=== PATIENT | male | born 1970 | race Caucasian/White ===

== ENCOUNTER 2024-10-24 18:19 | Outpatient (REF) | payer OTHER, SELFPAY ==
--- NOTE | ~2024-10-24 | MR_ITS ---
CLINICAL HISTORY: [facility] Forgetfulness sometimes, memory issues noted by pt's , sx going on for a c ouple years MR Brain without gadolinium Comparison: None Findings: No restricted diffusion. No intra-axial mass or hemorrhage. No midline shift. No hydrocephalus. Left posterior temporal lobe encephalomalacia /gliosis consistent with chronic infarct adjacent to the left sigmoid sinus which demonstrate abnormal flow void within the transverse sinus, sigmoid sinus, and proximal jugular vein concerning for dural venous sinus thrombosis and resultant venous infarct. Abnormal flow void is noted within the right intracranial vertebral artery. Moderate periventricular and subcortical T2/FLAIR hyperintensities most likely represent chronic microvascular ischemic changes. The orbits are normal. The sinuses and mastoid air cells are clear. No focal bone lesion. 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 No evidence of acute infarct or intracranial hemorrhage. Abnormal flow void within the right intracranial vertebral artery concerning for chronic occlusion/stenosis. CTA head and neck, and CTV is recommended for further evaluation. Moderate periventricular and subcortical T2/FLAIR hyperintensities, most likely represent chronic microvascular ischemic changes. This document has been electronically signed by: Chencho Watson MD on 10/24/2024 19:29:37
--- OUTSIDE RECORDS SUMMARY | 2024-10-24 18:59 | XMS_ITS | Clinical Summary ---
Author Organization [facility] [address] [place] [address] [place] [phone] Phone Care Team Providers Care Organizational Development Specialist Name Role Phone Roni Christianson MD Primary Care Provider [phone] Medications warfarin (COUMADIN) 5 mg tablet Take 1-2 Tablets by mouth See Admin Instructions for 360 days. May cause heavy bleeding. Take at same time every day. Do not change dietary habits. 12/17/19 23 Active ergocalcifero l (VITAMIN D-2) 1,250 mcg (50,000 unit) capsule Take 1 capsule (50,000 Units total) by mouth 1 (one) time per week. 8 capsule 06/14/20 24 Active enoxaparin (LOVENOX) 100 mg/mL syringe Inject 1 mL (100 mg total) under the skin every 12 (twelve) hours. Inject 100 mg as directed 2 times daily. Please dispense 10 100 mg syringes 10 each 1 10/14/19 25 Active atorvastatin (LIPITOR) 80 mg tablet Take 1 tablet (80 mg total) by mouth at bedtime. 90 tablet 10/25/19 25 Active warfarin (COUMADIN) 6 mg tablet Take 1-1.5 Tablet by mouth daily. Take as directed by clinic. 135 each 10/25/19 25 Active gabapentin (NEURONTIN) 300 mg capsule Take 1 capsule (300 mg total) by mouth 3 (three) times a day. 270 capsule 1 10/25/19 25 Active enoxaparin (LOVENOX) 300 mg/3 mL injection Inject 100 mg into the skin 2 times daily for 30 days. 10/16/19 24 025 Discontinued enoxaparin (LOVENOX) 100 mg/mL syringe Inject 100 mg as directed 2 times daily. Please dispense 10 100 mg syringes 10/16/19 24 025 Discontinued atorvastatin (LIPITOR) 80 mg tablet Take 1 tablet (80 mg total) by mouth at bedtime. 90 tablet 1 05/25/20 24 025 Discontinued(R eorder) gabapentin (NEURONTIN) 300 mg capsule Take 1 capsule (300 mg total) by mouth 3 (three) times a day. 270 capsule 1 05/25/20 24 025 Discontinued(R eorder) warfarin (COUMADIN) 6 mg tablet Take 1-1.5 Tablet by mouth daily. Take as directed by clinic. 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 Cervical spondylosis 03/22/2020 Cervical radiculitis 03/22/2020 Heterozygous factor V Leiden mutation 10/07/2017 Tear of right rotator cuff 01/05/2017 Spinal stenosis 04/06/2015 Furuncles 12/04/2014 PVD (peripheral vascular disease) 12/04/2014 HTN (hypertension) 03/23/2014 Hyperlipidemia 12/16/2012 Shoulder pain, left 11/12/2012 Elbow pain, left 11/12/2012 Migraine 11/12/2012 Smoking 11/12/2012 Obesity (BMI 30.0-34.9) 12/28/2010 Encounters Date Type Department Care Team Description 10/24/2024 2:10 PM EDT Anticoagulation - Warfarin Visit Coumadin [address] [phone] Heterozygous factor V Leiden mutation (CMS/HCC) (Primary Dx); terminal operator (current) use of anticoagulants; Personal history of DVT (deep vein thrombosis) 10/24/2024 1:00 PM EDT Office Visit Adult Medicine [address] [phone] Roni Christianson MD Pure hypercholesterolemia (Primary Dx); Encounter for long-term (current) use of medications; Vitamin D deficiency; Pain in both feet; PVD (peripheral vascular disease) (CMS/HCC); Spinal stenosis, unspecified spinal region 10/18/2024 10:00 AM EDT Anticoagulation - Warfarin Visit Coumadin [address] [phone] Heterozygous factor V Leiden mutation (CMS/HCC) (Primary Dx); custodial (current) use of anticoagulants; Personal history of DVT (deep vein thrombosis) 10/13/2024 9:30 AM EDT Anticoagulation - Warfarin Visit Coumadin [address] [phone] Heterozygous factor V Leiden mutation (CMS/HCC) (Primary Dx); custodial (current) use of anticoagulants; Personal history of DVT (deep vein thrombosis) 10/06/2024 9:40 AM EDT Anticoagulation - Warfarin Visit Coumadin [address] [phone] Heterozygous factor V Leiden mutation (CMS/HCC) (Primary Dx); custodial (current) use of anticoagulants; Personal history of DVT (deep vein thrombosis) 10/04/2024 2:45 PM EDT Ancillary Procedure [facility] 101 300 [facility] [place] [address] [place] [phone] History of revascularization procedure of lower extremity; PAD (peripheral artery disease) (CMS/HCC) 09/29/2024 9:40 AM EDT Anticoagulation - Warfarin Visit Coumadin [address] [phone] Heterozygous factor V Leiden mutation (CMS/HCC) (Primary Dx); terminal operator (current) use of anticoagulants; Personal history of DVT (deep vein thrombosis) 09/21/2024 11:20 AM EST Anticoagulation - Warfarin Visit Coumadin [address] [phone] Heterozygous factor V Leiden mutation (CMS/HCC) (Primary Dx); custodial (current) use of anticoagulants; Personal history of DVT (deep vein thrombosis) 09/14/2024 3:50 PM EST Anticoagulation - Warfarin Visit Coumadin [address] [phone] Heterozygous factor V Leiden mutation (CMS/HCC) (Primary Dx); custodial (current) use of anticoagulants; Personal history of DVT (deep vein thrombosis) 09/07/2024 11:20 AM EST [facility] [address] [phone] Heterozygous factor V Leiden mutation (CMS/HCC) (Primary Dx); custodial (current) use of anticoagulants; Personal history of DVT (deep vein thrombosis) 08/30/2024 10:20 AM EST Anticoagulation - Warfarin Visit [address] [phone] Heterozygous factor V Leiden mutation (CMS/HCC) (Primary Dx); terminal operator (current) use of anticoagulants; Personal history of DVT (deep vein thrombosis) 07/28/2024 10:20 AM EST Anticoagulation - Warfarin Visit [address] [phone] Heterozygous factor V Leiden mutation (CMS/HCC) (Primary Dx); terminal operator (current) use of anticoagulants; Personal history of DVT (deep vein thrombosis) from Last 3 Months Immunizations Name Administration Dates Next Due Influenza Quadravalent, MDCK , 0.5ml, with preservative (Flucelvax) 6mo and older 05/04/2018 Surgical History Surgery Date Site/Laterality Comments OTHER SURGICAL HISTORY PROCEDURE: DENIES PREVIOUS SURGERY OTHER SURGICAL HISTORY PROCEDURE: HISTORICAL FEM/POPLITEAL BY; COMMENT: with vein Medical History Medical History Date Comments Overweight(278.02) 12/28/2010 DX:Overweight (278.02) Shoulder pain, left 11/12/2012 DX:Shoulder pain, left Elbow pain, left 11/12/2012 DX:Elbow pain, left Migraine 11/12/2012 DX:Migraine Smoking 11/12/2012 DX:Smoking Historical Medical DX 12/16/2012 DX:Hyperli pidemia LDL goal < 130 Back pain 12/16/2012 DX:Back pain Family History Medical History Relation Name Comments Asthma Mother Relation Name Status Comments Mother Social History Tobacco Use Types Packs/Day Years Used Date Smoking Tobacco: Every Day Cigarettes Smokeless Tobacco: Never Tobacco Cessation:Ready to Q uit: Not Asked; Counseling Given: Not Answered Alcohol Use Standard Drinks/Week Comments Yes 0 (1 standard drink = 0.6 oz pur e alcohol) Sex and Gender Information Value Date Recorded Sex Assigned at Not on file Legal Sex Male 9:13 AM EST Gender Identity Not on file Sexual Orientation Not on file Obstetrics History Last Filed Vital Signs Vital Sign Reading Time Taken Comments Blood Pressure 130/80 10/24/2024 1:10 PM EDT Pulse 80 10/24/2024 1:10 PM EDT Temperature 36.8 ??C (98.2 ??F) 10/24/2024 1:10 PM ED T Respiratory Rate 16 10/24/2024 1:10 PM EDT Oxygen Saturation 97% 05/25/2024 1:42 PM EST Inhaled Oxygen Concentration - - Weight 112 kg (246 lb) 10/24/2024 1:10 PM EDT Height 177.8 cm (5' 10 ) 10/24/2024 1:10 PM EDT Body Mass Index 35.3 10/24/2024 1:10 PM EDT Plan of Treatment Upcoming Encounters Date Type Department Care Team (Late st Contact Info) Description 10/31/2024 9:40 AM EDT Anticoagulation - Warfarin Visit [facility] [address] [phone] 11/04/2024 8:00 AM EDT Ancillary Procedure [facility] 101 300 [facility] 101 [place] [phone] 12/01/2024 11:00 AM EDT Office Visit Vascular [place] [address] [place] [phone] Demond Ayala MD 300 [facility] 210 [place] [address] 05/09/2025 11:30 AM EDT Office Visit Adult Medicine [facility] [address] [place] [phone] Roni Christianson MD [address] [place] [phone] Health Maintenance Due Date Last Done Comments DTaP,Tdap,and Td Vaccines (1 - Tdap) 1989 Hepatitis B Vaccines (1 of 3 - 19+ 3-dose series) 1989 Pneumococcal Vaccine: 50+ Years (1 of 2 - PCV) 1989 Pneumococcal Vaccine: Pediatrics (0 to 5 Years) and At-Risk Patients (6 to 64 Years) (1 of 2 - PCV) 1989 Zoster Vaccines (1 of 2) 2020 Colorectal Cancer Screening: Stool Based Tests (FOBT/FIT) 06/22/2022 Depression Screening 06/22/2022 HIV Screening 06/22/2022 Hepatitis C Screening 06/22/2022 Lung Cancer Screening (Low Dose CT) 06/22/2022 Social Influencers of Health Screening 06/22/2022 COVID-19 Vaccine (2023-2 5 season) 2024 Hypertension/CHF/CAD Annual BMP Blood Test 03/04/2025 03/04/2024 Influenza Vaccine (Season Ended) 2025 05/04/2018 Cholesterol Screening (Lipid Panel) 05/25/2029 05/25/2024, 05/25/2024, 10/06/2023 HIB Vaccines Aged Out No longer eligi ble based on patient's age to complete this topic HPV Vaccines Aged Out No longer eligi ble based on patient's age to complete this topic Hepatitis A Vaccines Aged Out No long er eligible based on patient's age to complete this topic IPV Vaccines Aged Out No longer eligi ble based on patient's age to complete this topic MMR Vaccines Aged Out No longer eligi ble based on patient's age to complete this topic Meningococcal ACWY Vaccine Aged Out N o longer eligible based on patient's age to complete this topic Meningococcal B Vaccine Aged Out No l onger eligible based on patient's age to complete this topic RSV Immunization Patients Under 20 months Aged Out No longer eligible b ased on patient's age to complete this topic Varicella Vaccines Aged Out No longer eligible based on patient's age to complete this topic Procedures Procedure Name Priority Date/Time Associated Diagnosis Comments POC PROTIME INR BLOOD Routine 10/24/2024 Heterozygous factor V Leiden mutation (CMS/HCC) terminal operator (current) use of anticoagulants Personal history of DVT (deep vein thrombosis) POC PROTIME INR BLOOD Routine 10/18/2024 Heterozygous factor V Leiden mutation (CMS/HCC) terminal operator (current) use of anticoagulants Personal history of DVT (deep vein thrombosis) POC PROTIME INR BLOOD Routine 10/13/2024 Heterozygous factor V Leiden mutation (CMS/HCC) custodial (current) use of anticoagulants Personal history of DVT (deep vein thrombosis) POC PROTIME INR BLOOD Routine 10/06/2024 Heterozygous factor V Leiden mutation (CMS/HCC) custodial (current) use of anticoagulants Personal history of DVT (deep vein thrombosis) VAS US DUPLEX LOWER EXT ARTERIES BILAT WITH TATY Routine 10/04/2024 4:06 PM EDT History of revascularization procedure of lower extremity PAD (peripheral artery disease) (CMS/HCC) POC PROTIME INR BLOOD Routine 09/29/2024 Heterozygous factor V Leiden mutation (CMS/HCC) terminal operator (current) use of anticoagulants Personal history of DVT (deep vein thrombosis) POC PROTIME INR BLOOD Routine 09/21/2024 Heterozygous factor V Leiden mutation (CMS/HCC) terminal operator (current) use of anticoagulants Personal history of DVT (deep vein thrombosis) POC PROTIME INR BLOOD Routine 09/14/2024 Heterozygous factor V Leiden mutation (CMS/HCC) custodial (current) use of anticoagulants Personal history of DVT (deep vein thrombosis) POC PROTIME INR BLOOD Routine 09/07/2024 Heterozygous factor V Leiden mutation (CMS/HCC) custodial (current) use of anticoagulants Personal history of DVT (deep vein thrombosis) POC PROTIME INR BLOOD Routine 08/30/2024 Heterozygous factor V Leiden mutation (CMS/HCC) terminal operator (current) use of anticoagulants Personal history of DVT (deep vein thrombosis) POC PROTIME INR BLOOD Routine 07/28/2024 Heterozygous factor V Leiden mutation (CMS/HCC) terminal operator (current) use of anticoagulants Personal history of DVT (deep vein thrombosis) LIPID PANEL WITH REFLEX TO DIRECT LDL Routine 05/25/2024 2:19 PM EST Hyperlipidemia, unspecified hyperlipidemia type from Last 3 Months or Most Recently Relevant to Health Maintenance Results * POC Protime INR Blood (10/24/2024) Only the most recent of10 resultswithin the time period is included. Lot Number INR POC 1.7 Prothrombin Time POC Exp Date Blood 10/24/2024 us Roni Christianson MD POINT OF CARE TEST ENTER/EDIT O RDERABLES Edited Result - Final * Vascular US duplex lower extremity arteries bilateral with TATY (10/04/2024 4:06 PM EDT) Left Dist External Iliac PSV 60 cm/s [facility] Left Prox External Iliac PSV 66 cm/s [facility] Left AT dist sys PSV 0 cm/s [facility] Left AT mid sys PSV 0 cm/s [facility] Left AT prox sys PSV 14 cm/s [facility] Left DIE FILER prox sys PSV 102 cm/s [facility] Left mid peroneal sys PSV 35 cm/s [facility] Left popliteal dist sys PSV 0 cm/s [facility] Left popliteal prox sys PSV 0 cm/s [facility] Left PT dist sys PSV 10 cm/s [facility] Left PT mid sys PSV 9 cm/s [facility] Left PT prox sys PSV 7 cm/s CV [facility] Left profunda sys PSV 65 cm/s [facility] Left super femoral dist sys PSV 56 cm/s CV [facility] Left super femoral mid sys PSV 64 cm/s [facility] Left super femoral prox sys PSV 63 cm/s [facility] Right Dist External Iliac PSV 66 cm/s [facility] Right Prox External Iliac PSV 60 cm/s [facility] Right AT dist sys PSV 91 cm/s [facility] Right AT mid sys PSV 79 cm/s [facility] Right AT prox sys PSV 54 cm/s [facility] Right DIE FILER prox sys PSV 85 cm/s [facility] Right mid peroneal sys PSV 43 cm/s CV [facility] Right popliteal dist sys PSV 55 cm/s [facility] Right popliteal prox sys PSV 68 cm/s [facility] Right PT dist sys PSV 58 cm/s [facility] Right PT mid sys PSV 69 cm/s [facility] Right PT prox sys PSV 58 cm/s [facility] Right profunda sys PSV 44 cm/s [facility] Right super femoral dist sys PSV 81 cm/s [facility] Right super femoral mid sys PSV 109 cm/s [facility] Right super femoral prox sys PSV 83 cm/s [facility] Right arm BP 150 mmHg [facility] Left arm BP 143 mmHg [facility] Right posterior tibial 165 mmHg [facility] Right Dorsalis Pedis 163 mmHg [facility] Right TATY 1.10 [facility] Left posterior tibial 90 mmHg [facility] Left Dorsalis Pedis 87 mmHg [facility] Left TATY 0.60 [facility] Anatomical Region Laterality Modality Vascular, Abdomen Ultrasound Narrative 10/12/2024 4:09 PM EDT Right le. ??Normal ankle-brachial index (1.10). 2. ??There is evidence of moderate stenosis (20-49%) in the following arterial segments: Proximal popliteal artery 3. ??There is evidence of severe stenosis (50-99%) in the following arterial segments: Distal AZIZA and distal GEOSPATIAL PROGRAM MANAGEMENT OFFICER Left le. ??Moderately to severely abnormal ankle-brachial index at 0.60. 2. ??The patient has a history of a left femoral-popliteal bypass graft surgery which occurred more than 10 years ago at [facility]. ?? 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 ??The bypass graft was not visualized on the current study. 3. ??There is evidence of severe stenosis (50-99%) in the following arterial segments: Distal SFA, left peroneal artery, and left GEOSPATIAL PROGRAM MANAGEMENT OFFICER 4. ??The right popliteal artery is occluded. ??Of note, this was previously noted on the arterial duplex from March 2024. 5. ??The left mid to distal AZIZA is occluded. ??The left mid to distal AZIZA occlusion is new when compared to the arterial duplex from March 2024. Right Lower Arterial Duplex The distal external iliac artery has triphasic flow. The common femoral artery has triphasic flow. The profunda femoris artery has triphasic flow. The superficial femoral artery has triphasic flow. The proximal popliteal artery has biphasic flow. The distal popliteal artery has triphasic flow. The proximal anterior tibial artery has triphasic flow. The mid anterior tibial artery has triphasic flow. The distal anterior tibial artery has monophasic flow. The proximal posterior tibial artery has triphasic flow. The mid posterior tibial artery has triphasic flow. The distal posterior tibial artery has monophasic flow. The mid peroneal artery has triphasic flow. Left Lower Arterial Duplex The distal external iliac artery has triphasic flow. The common femoral artery has triphasic flow. The profunda femoris artery has triphasic flow. The proximal superficial femoral artery has triphasic flow. The mid superficial femoral artery has triphasic flow. The distal superficial femoral artery has monophasic flow. The popliteal artery is occluded. The proximal anterior tibial artery has monophasic flow. The mid anterior tibial artery is occluded. The distal anterior tibial artery is occluded. The posterior tibial artery has monophasic flow and had reversal flow The mid peroneal artery has monophasic flow. Clinical Support Associate Details A camara scale, color and doppler analysis ultrasound was performed. During the study longitudinal and transverse views were obtained. Continuous wave doppler and pulsed wave doppler was performed. Overall the study quality was poorly visualized. Study was technically difficult due to: body habitus. us Demond Ayala MD CV VASCULAR PROCEDURES Final Re sult * (ABNORMAL) Lipid panel with reflex to direct LDL (05/25/2024 2:19 PM EST) Cholesterol 227(H) 0 - 200 mg/dL LAB CHEMISTRY METHOD 05/25/2024 5:12 PM EST [facility] Triglycerides 582(H) 0 - 150 mg/dL LAB CHEMISTRY METHOD 05/25/2024 5:12 PM [facility] HDL 38(L) >=40 mg/dL LAB CHEMISTRY METHOD 05/25/2024 5:12 PM [facility] LDL Calculated LAB CHEMISTRY METHOD 05/25/2024 5:12 PM [facility] Comment: Unable to calculate when triglycerides >400 mg/dL. Triglyceride value is >= 500. ??Calculated LDL is not meaningful. ??Direct LDL has been added. VLDL Cholesterol Romel LAB CHEMISTRY METHOD 05/25/2024 5:12 PM [facility] Comment:Unable to calculate when triglycerides >400 mg/dL. Non HDL Chol. (LDL+VLDL) LAB CHEMISTRY METHOD 05/25/2024 5:12 PM [facility] Comment:Unable to calculate when triglycerides >400 mg/dL. Chol/HDL Ratio 6.0(H) 0.0 - 4.4 LAB CHEMISTRY METHOD 05/25/2024 5:12 PM [facility] Blood Venous blood specimen / Unknown Venipuncture / Unknown 05/25/2024 2:19 PM EST 05/25/2024 2:19 PM EST us Shruthi LUNSFORD LAB BLOOD ORDERABLES Fi nal Result [facility] [address] [place] [address], from Last 3 Months or Most Recently Relevant to Health Maintenance Insurance [facility] Care Teams Organizational Development Specialist Relationship Specialty Start Date End Date Roni Christianson MD [address] [place] [id number] PCP - General Internal Medicine 05/24/24
--- OUTSIDE RECORDS SUMMARY | 2024-10-24 18:59 | XMS_ITS | Clinical Summary ---
Author Organization [facility] Address [address] [place] [address] Care Team Providers Care Multiple Spindle Router Operator Name Role Phone Roni Christianson MD Primary Care Provider [phone] Medications No known medications Active Problems No known active problems Social History Tobacco Use Types Packs/Day Years Used Date Smoking Tobacco: Never Assessed Sex and Gender Information Value Date Recorded Sex Assigned at Not on file Gender Identity Not on file Sexual Orientation Not on file Job Start Date Occupation Industry Not on file Not on file Not on file Last Filed Vital Signs Vital Sign Reading Time Taken Comments Blood Pressure 154/94 04/30/2022 4:12 PM EDT Pulse 77 04/30/2022 4:12 PM EDT Temperature 36.2 ??C (97.2 ??F) 04/30/2022 4:12 PM ED T Respiratory Rate - - Oxygen Saturation 98% 04/30/2022 4:12 PM EDT Inhaled Oxygen Concentration - - Weight 98.9 kg (218 lb) 04/30/2022 4:12 PM EDT Height - - Body Mass Index - - Plan of Treatment Health Maintenance Due Date Last Done Comments Hepatitis B Vaccines (1 of 3 - 3-dose series) 1970 Hepatitis C Screening 1970 COVID-19 Vaccine (#1) 01/24/1971 Depression Screening 1982 Preventative Health Evaluation 1988 DTap / Tdap / Td (1 - Tdap) 1989 Colon Cancer Screening (Colonoscopy) 2015 Shingrix-Zoster Vaccine (1 of 2) 2020 Influenza Vaccine (#1) 2024 05/04/2018 Pneumococcal Vaccine Aged Out No long er eligible based on patient's age to complete this topic RSV Ped < 20 months Aged Out No longe r eligible based on patient's age to complete this topic Care Teams Multiple Spindle Router Operator Relationship Specialty Start Date End Date Roni Christianson MD PCP - General Internal Medicine 04/17/22
--- OUTSIDE RECORDS SUMMARY | 2024-10-24 18:59 | XMS_ITS | Encounter Summary ---
Author Organization [facility] Address [address] [place] [address] Care Team Providers Care Director Ehs Name Role Phone Roni Christianson MD Primary Care Provider [phone] Reason for Referral * Consultation (Routine) - Pending Review Specialty Diagnoses / Procedures Referred By Jackelyn kong Referred To Contact Podiatry Diagnoses Pain in both feet Roni Christianson MD [address] [place] [phone] Phone: tel: fax: Keyur Peña, DPM [address] [place] [address] Phone: tel: fax: Referral ID Status Reason Start Date Expiration Date Visits Requested Visits Authorized [id number] Pending Review Specialty Services Required 10/24/2024 10/24/2025 1 1 Reason for Visit * Reason Comments Follow-up Encounter Details Date Type Department Care Team ([facility] st Contact Info) Description 10/24/2024 1:00 PM EDT Office Visit Adult Medicine [address] [address] Roni Christianson MD [address] [place] [phone] Pure hypercholesterolemia (Primary Dx); Encounter for long-term (current) use of medications; Vitamin D deficiency; Pain in both feet; PVD (peripheral vascular disease) (CMS/HCC); Spinal stenosis, unspecified spinal region Social History Tobacco Use Types Packs/Day Years Used Date Smoking Tobacco: Every Day Cigarettes Smokeless Tobacco: Never Alcohol Use Standard Drinks/Week Comments Yes 0 (1 standard drink = 0.6 oz pur e alcohol) Sex and Gender Information Value Date Recorded Sex Assigned at Not on file Legal Sex Male 9:13 AM EST Gender Identity Not on file Sexual Orientation Not on file documented as of this encounter Last Filed Vital Signs Vital Sign Reading Time Taken Comments Blood Pressure 130/80 10/24/2024 1:10 PM EDT Pulse 80 10/24/2024 1:10 PM EDT Temperature 36.8 ??C (98.2 ??F) 10/24/2024 1:10 PM ED T Respiratory Rate 16 10/24/2024 1:10 PM EDT Oxygen Saturation - - Inhaled Oxygen Concentration - - Weight 112 kg (246 lb) 10/24/2024 1:10 PM EDT Height 177.8 cm (5' 10 ) 10/24/2024 1:10 PM EDT Body Mass Index 35.3 10/24/2024 1:10 PM EDT documented in this encounter Ordered Prescriptions Prescription Sig Dispense Quantity Refills Last Filled Start Date End Date gabapentin (NEURONTIN) 300 mg capsule Take 1 capsule (300 mg total) by mouth 3 (three) times a day. 270 capsule 1 10/24/2024 warfarin (COUMADIN) 6 mg tablet Take 1-1.5 Tablet by mouth daily. Take as directed by clinic. 135 each 1 10/24/2024 atorvastatin (LIPITOR) 80 mg tablet Take 1 tablet (80 mg total) by mouth at bedtime. 90 tablet 1 10/24/2024 documented in this encounter Progress Notes * Rnoi Christianson MD - 10/24/2024 1:00 PM EDT CHIEF COMPLAINT: Follow-up IDENTIFIER: Galileo Richards is a 54 y.o. old male. 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 Occluded left femoral-popliteal artery bypass was correlated on arterial duplex. No intervention is warranted at this time other than risk factor modification. Pt with high cholesterol pt is on high intensity statin therapy Last ldl 120 05/2024 Pt with hx of vit d deficiency pt has completed replacement Last vit d 8.6 05/2024 Pt with burning feet pain pt is on gabapentin pt notes helpful Pt notes pain is not controlled Pt with lumbar disc disease /spinal stenosis ROS: GENERAL: Negative for malaise, significant weight loss and fever RESPIRATORY: No cough, wheezing or shortness of breath CARDIOVASCULAR: Negative for chest pain, leg swelling and palpitations NEURO: See HPI PAST MEDICAL HISTORY: Patient Active Problem List Diagnosis Date Noted group home (current) use of anticoagulants 05/27/2024 Personal history of DVT (deep vein thrombosis) 05/27/2024 Vitamin D deficiency 04/08/2024 Retroperitoneal hematoma 04/21/2022 Cervical spondylosis 03/22/2020 Cervical radiculitis 03/22/2020 Heterozygous factor V Leiden mutation ([facility]) 10/07/2017 Tear of right rotator cuff 01/05/2017 Spinal stenosis 04/06/2015 Furuncles 12/04/2014 PVD (peripheral vascular disease) ([facility]) 12/04/2014 HTN (hypertension) 03/23/2014 Hyperlipidemia 12/16/2012 Shoulder pain, left 11/12/2012 Elbow pain, left 11/12/2012 Migraine 11/12/2012 Smoking 11/12/2012 Obesity (BMI 30.0-34.9) 12/28/2010 SOCIAL HISTORY: Social History Tobacco Use Smoking status: Every Day Current packs/day: 0.80 Types: Cigarettes Smokeless tobacco: Never Substance Use Topics Alcohol use: Yes FAMILY HISTORY: Family Status Relation Name Status Mother (Not Specified) No partnership data on file Family History Problem Relation Name Age of Onset Asthma Mother ACTIVE MEDICATIONS: No outpatient medications have been marked as taking for the 10/24/24 encounter (Appointment) with Roni Christianson MD. ALLERGIES: Patient has no allergy information on record. PHYSICAL EXAM: Blood pressure 130/80, pulse 80, temperature 36.8 ??C (98.2 ??F), resp. rate 16, height 1.778 m (70 ), weight 112 kg (246 lb). There is no height or weight on file to calculate BMI. Plan is deferred until next visit APPEARANCE: Alert and in no acute distress EYES: PERRLA, conjunctiva and sclera normal HEART: RRR with normal S1 and S2, no murmurs, no gallops, no JVD appreciated LUNG: clear to auscultation bilaterally EXTREMITIES: Extremities warm and well perfused without clubbing, cyanosis, or edema LABS: none IMPRESSION: 1. Pure hypercholesterolemia 2. Encounter for long-term (current) use of medications 3. Vitamin D deficiency 4. Pain in both feet 5. PVD (peripheral vascular disease) (CMS/HCC) 6. Spinal stenosis, unspecified spinal region PLAN: pt with high cholesterol on a statin will check lipid profile and lft's; last ldl 120 if increasingwould consider changing the atorvastatin 80 to crestor 40mg Pt with PVD arterial duplex shows occluded left femoral -popliteal bypass. Pt w/o pain claudicationno intervention recommend. Vascular notes would consider pletal pt has f/u scheduled for next month Pt with low vit d had replacement last vit d very lo at 8.6 will update today Pt with lumbar disc disease pt notes burning pain in feet likely radicular pt w/o relief on currentregimen of gabapentin will at this time refer to Podiatry Pt with factor v mutation to continue life long coumadin Pt to f/u with me in 6 months Myself and my colleagues have maintained a long-term, longitudinal relationship with this patient, overseeing care of chronic conditions including high cholesterol . This care relationship has significantly influenced my decision making and treatment plans during today's encounter. No orders of the defined types were placed in this encounter. ADDITIONAL ORDERS: None Roni Christianson MD on 10/24/2024 at 11:39 AM EDT documented in this encounter Plan of Treatment Upcoming Encounters Date Type Department Care Team (Late st Contact Info) Description 10/31/2024 9:40 AM EDT Anticoagulation - Warfarin Visit [facility] [address] [address] 11/04/2024 8:00 AM EDT Ancillary Procedure [facility] [address] [facility] [address] [place] [address] 12/01/2024 11:00 AM EDT Office Visit Vascular Surgery - [place] [address] [facility] [address] [place] [address] Demond Ayala MD [address] [facility] [address] [place] [address] 05/09/2025 11:30 AM EDT Office Visit Adult Medicine [facility] [address] [place] [address] Roni Christianson MD [address] [place] [phone] Scheduled Orders Name Type Priority Associated Diagnoses Orde r Schedule Lipid panel with reflex to direct LDL Lab Routine Pure hypercholesterolemia 1 Occurrences starting 10/24/2024 until 10/24/2025 Comprehensive metabolic panel Lab Routine Encounter for long-term (current) use of medications 1 Occurrences starting 10/24/2024 until 10/24/2025 Vitamin D 25 hydroxy Lab Routine Vitamin D deficiency 1 Occurrences starting 10/24/2024 until 10/24/2025 Scheduled Referrals Name Type Priority Associated Diagnoses Order Schedule Ambulatory referral to Podiatry Outpatient Referral Routine Pain in both feet 1 Occurrences starting 10/24/2024 until 10/24/2025 documented as of this encounter Visit Diagnoses Diagnosis Pure hypercholesterolemia- Primary Encounter for long-term (current) use of medications Encounter for long-term (current) use of other medications Vitamin D deficiency Pain in both feet PVD (peripheral vascular disease) ([facility]) Unspecified peripheral vascular disease Spinal stenosis, unspecified spinal region documented in this encounter Discontinued Medications Medication Sig Discontinue Reason Start Date End Da te atorvastatin (LIPITOR) 80 mg tablet Take 1 tablet (80 mg total) by mouth at bedtime. Reorder 05/25/2024 10/24/2024 gabapentin (NEURONTIN) 300 mg capsule Take 1 capsule (300 mg total) by mouth 3 (three) times a day. Reorder 05/25/2024 10/24/2024 warfarin (COUMADIN) 6 mg tablet Take 1-1.5 Tablet by mouth daily. Take as directed by clinic. Reorder 05/25/2024 10/24/2024 documented as of this encounter Care Teams Director Ehs Relationship Specialty Start Date End Date Roni Christianson MD [address] [place] [phone] PCP - General Internal Medicine 05/24/24 documented as of this encounter
--- OUTSIDE RECORDS SUMMARY | 2024-10-24 18:59 | XMS_ITS | Encounter Summary ---
Author Organization [facility] Address [address] [place] [address] Care Team Providers Care Grocery Worker Name Role Phone Roni Christianson MD Primary Care Provider Encounter Details Date Type Department Care Team (Latest Contact Info) Description 10/24/2024 2:10 PM EDT Anticoagulation - Warfarin Visit [facility] [address] [phone] Heterozygous factor V Leiden mutation (CMS/HCC) (Primary Dx); prison (current) use of anticoagulants; Personal history of DVT (deep vein thrombosis) Social History Tobacco Use Types Packs/Day Years [...] on file documented as of this encounter Plan of Treatment Upcoming Encounters Date Type Department Care Team (Late st Contact Info) Description 10/31/2024 9:40 AM EDT Anticoagulation - Warfarin Visit [facility] [address] [address] 11/04/2024 8:00 AM EDT Ancillary Procedure [facility] [address] [place] [phone] 12/01/2024 11:00 AM EDT Office Visit Vascular Surgery - [place] [address] [place] [address] Demond Ayala MD [address] [place] [address] 05/09/2025 11:30 AM EDT Office Visit Adult [facility] [address] [place] [address] Roni Christianson MD [address] [place] [phone] documented as of this encounter Procedures Procedure Name Priority Date/Time Associated Diagnosis Comments POC PROTIME INR BLOOD Routine 10/24/2024 Heterozygous factor V Leiden mutation (CMS/HCC) prison (current) use of anticoagulants Personal history of DVT (deep vein thrombosis) documented in this encounter Results * POC Protime INR Blood (10/24/2024) Lot Number INR POC 1.7 Prothrombin Time POC Exp Date Blood 10/24/2024 Roni Christianson MD POINT OF CARE TEST ENTER/EDIT O RDERABLES Edited Result - Final documented in this encounter Visit Diagnoses Diagnosis Heterozygous factor V Leiden mutation (CMS/HCC)- Primary Primary hypercoagulable state manager terminal (current) use of anticoagulants Long-term (current) use of anticoagulants Personal history of DVT (deep vein thrombosis) Personal history of venous thrombosis and embolism documented in this encounter Care Teams Grocery Worker Relationship Specialty Start Date End Date Roni Christianson MD [address] [place] [phone] PCP - General Internal Medicine 05/24/24 documented as of this encounter
== END 2024-10-24 18:20 | disposition home or self-care (01) ==
LOC: HO.MRI 18:19
PROVIDERS: Visit Provider Psychiatry & Neurology Neurology
DX: G31.84 Mild cognitive impairment of uncertain or unknown etiology (principal)
CPT/HCPCS: 70551

== ENCOUNTER → 2024-10-24 18:30 | Outpatient (BNV) | payer OTHER, SELFPAY | PROVIDERS: Visit Provider Student in an Organized Health Care Education/Training Program | DX: G31.84 Mild cognitive impairment of uncertain or unknown etiology (principal) | CPT/HCPCS: 70551 ==

== ENCOUNTER 2024-11-21 11:09 | Outpatient (REF) | payer OTHER, SELFPAY ==
[2024-11-21 12:13] LABS: Blood Urea Nitrogen 14 mg/dL (9-16); Estimated Glomerular Filt Rate > 60
[2024-11-21 12:45] LABS: Vitamin B12 644 pg/mL (200-900)
--- OUTSIDE RECORDS SUMMARY | 2024-11-21 12:56 | XMS_ITS | Clinical Summary ---
Author Organization [facility] [address] [place] [address] [place] [phone] Phone Care Team Providers Care Fourdrinier Machine Tender Name Role Phone Roni Christianson MD Primary Care Provider [phone] Medications warfarin (COUMADIN) 5 mg tablet Take 1-2 Tablets by mouth See Admin Instructions for 360 days. May cause heavy bleeding. Take at same time every day. Do not change dietary habits. 3 Active ergocalciferol (VITAMIN D-2) 1,250 mcg (50,000 unit) capsule Take 1 capsule (50,000 Units total) by mouth 1 (one) time per week. 8 capsule 4 Active enoxaparin (LOVENOX) 100 mg/mL syringe Inject 1 mL (100 mg total) under the skin every 12 (twelve) hours. Inject 100 mg as directed 2 times daily. Please dispense 10 100 mg syringes 10 each 1 5 Active atorvastatin (LIPITOR) 80 mg tablet Take 1 tablet (80 mg total) by mouth at bedtime. 90 tablet 1 5 Active warfarin (COUMADIN) 6 mg tablet Take 1-1.5 Tablet by mouth daily. Take as directed by clinic. 135 each 5 Active gabapentin (NEURONTIN) 300 mg capsule Take 1 capsule (300 mg total) by mouth 3 (three) times a day. 270 capsule 1 5 Active ergocalciferol (VITAMIN D-2) 1,250 mcg (50,000 unit) capsule Take 1 capsule (50,000 Units total) by mouth 1 (one) time per week for 8 doses. 8 capsule 5 025 Active atorvastatin (LIPITOR) 80 mg tablet Take 1 tablet (80 mg total) by mouth at bedtime. 90 tablet 1 4 025 Discontin ued(Reord er) gabapentin (NEURONTIN) 300 mg capsule Take 1 capsule (300 mg total) by mouth 3 (three) times a day. 270 capsule 1 4 025 Discontin ued(Reord er) warfarin (COUMADIN) 6 mg tablet Take 1-1.5 Tablet by mouth daily. Take as directed by clinic. 135 each 1 4 025 Discontin ued(Reord er) Hospital, Clinic, or Other Facility Administered Medication Ordered Dose Route Frequency Start Date End Date Status perflutren lipid microsphere (DEFINITY) 1.3 mL in sodium chloride 0.9% 8.7 mL injection 10 mL IV Once in imaging 11/04/2024 11/04/2024 End ed Active Problems Problem Noted Date Diagnosed Date prison (current) use of anticoagulants 2023 Personal history of DVT (deep vein thrombosis) 1 2023 Vitamin D deficiency 04/08/2024 Retroperitoneal hematoma 04/21/2022 Cervical spondylosis 03/22/2020 Cervical radiculitis 03/22/2020 Heterozygous factor V Leiden mutation ([facility] V 24) 10/07/2017 Tear of right rotator cuff 01/05/2017 Spinal stenosis 04/06/2015 Furuncles 12/04/2014 PVD (peripheral vascular disease) ([facility] V24) 12/04/2014 HTN (hypertension) 03/23/2014 Hyperlipidemia 12/16/2012 Shoulder pain, left 11/12/2012 Elbow pain, left 11/12/2012 Migraine 11/12/2012 Smoking 11/12/2012 Obesity (BMI 30.0-34.9) 12/28/2010 Encounters Date Type Department Care Team Description 11/17/2024 Anticoagulation - [facility]farin [facility] [address] [phone] Jo Puentes LPN Heterozygous factor V Leiden mutation (CMS/HCC V24) (Primary Dx); extermination supervisor (current) use of anticoagulants; Personal history of DVT (deep vein thrombosis) 11/04/2024 8:00 AM EDT Ancillary Procedure [facility] - [address] [place] [address] SOB (shortness of breath) on exertion 11/03/2024 Anticoagulation - Warfarin Visit Coumadin [address] [phone] Jo Puentes LPN Heterozygous factor V Leiden mutation (CMS/HCC V24) (Primary Dx); prison (current) use of anticoagulants; Personal history of DVT (deep vein thrombosis) 10/24/2024 2:10 PM EDT Anticoagulation - Warfarin Visit Coumadin [address] [phone] Heterozygous factor V Leiden mutation (CMS/HCC V24) (Primary Dx); extermination supervisor (current) use of anticoagulants; Personal history of DVT (deep vein thrombosis) 10/24/2024 1:00 PM EDT Office Visit Adult Medicine [address] [phone] Roni Christianson MD Pure hypercholesterolemia (Primary Dx); Encounter for long-term (current) use of medications; Vitamin D deficiency; Pain in both feet; PVD (peripheral vascular disease) (CMS/HCC V24); Spinal stenosis, unspecified spinal region 10/18/2024 10:00 AM EDT Anticoagulation - Warfarin Visit Coumadin [address] [phone] Heterozygous factor V Leiden mutation (CMS/HCC V24) (Primary Dx); extermination supervisor (current) use of anticoagulants; Personal history of DVT (deep vein thrombosis) 10/13/2024 9:30 AM EDT Anticoagulation - Warfarin Visit Coumadin [address] [phone] Heterozygous factor V Leiden mutation (CMS/HCC V24) (Primary Dx); extermination supervisor (current) use of anticoagulants; Personal history of DVT (deep vein thrombosis) 10/06/2024 9:40 AM EDT Anticoagulation - Warfarin Visit Coumadin [address] [phone] Heterozygous factor V Leiden mutation (CMS/HCC V24) (Primary Dx); extermination supervisor (current) use of anticoagulants; Personal history of DVT (deep vein thrombosis) 10/04/2024 2:45 PM EDT Ancillary Procedure [facility] - [address] [place] [address] History of revascularization procedure of lower extremity; PAD (peripheral artery disease) (CMS/HCC V24) 09/29/2024 9:40 AM EDT Anticoagulation - Warfarin Visit Coumadin [address] [phone] Heterozygous factor V Leiden mutation (CMS/HCC V24) (Primary Dx); extermination supervisor (current) use of anticoagulants; Personal history of DVT (deep vein thrombosis) 09/21/2024 11:20 AM EST Anticoagulation - Warfarin Visit Coumadin [address] [phone] Heterozygous factor V Leiden mutation (CMS/HCC V24) (Primary Dx); extermination supervisor (current) use of anticoagulants; Personal history of DVT (deep vein thrombosis) 09/14/2024 3:50 PM EST Anticoagulation - Warfarin Visit Coumadin [address] [phone] Heterozygous factor V Leiden mutation (CMS/HCC V24) (Primary Dx); prison (current) use of anticoagulants; Personal history of DVT (deep vein thrombosis) 09/07/2024 11:20 AM EST Anticoagulation - Warfarin Visit Coumadin [address] [phone] Heterozygous factor V Leiden mutation (CMS/HCC V24) (Primary Dx); extermination supervisor (current) use of anticoagulants; Personal history of DVT (deep vein thrombosis) 08/30/2024 10:20 AM EST Anticoagulation - Warfarin Visit [facility] Clinic [address] [phone] Heterozygous factor V Leiden mutation (CMS/HCC V24) (Primary Dx); extermination supervisor (current) use of anticoagulants; Personal history of [...] Sign Reading Time Taken Comments Blood Pressure 140/100 11/04/2024 8:40 AM EDT Pulse 80 10/24/2024 1:10 PM EDT Temperature 36.8 ??C (98.2 ??F) 10/24/2024 1:10 PM ED T Respiratory Rate 16 10/24/2024 1:10 PM EDT Oxygen Saturation 97% 05/25/2024 1:42 PM EST Inhaled Oxygen Concentration - - Weight 111 kg (244 lb) 11/04/2024 8:40 AM EDT Height 175.3 cm (5' 9 ) 11/04/2024 8:40 AM EDT Body Mass Index 36.03 11/04/2024 8:40 AM EDT Plan of Treatment Upcoming Encounters Date Type Department Care Team (Late st Contact Info) Description 11/23/2024 2:30 PM EDT Anticoagulation - Warfarin Visit [facility]in Clinic [address] [phone] 12/01/2024 11:00 AM EDT Office Visit Vascular Surgery - [place] 300 [facility] 210 [place] [address] Demond Ayala MD 300 [facility] 210 [place] [address] 01/10/2025 1:00 PM EDT Consult Orthopedic Surgery [facility] [address] [phone] Keyur Peña, DPM [address] [address] 05/09/2025 11:30 AM EDT Office Visit Adult Medicine [address] [phone] Roni Christianson MD [address] [place] [phone] Health Maintenance Due Date Last Done Comments [...] Influencers of Health Screening 06/22/2022 COVID-19 Vaccine ( season) 2024 Influenza Vaccine (Season Ended) 2025 05/04/2018 Hypertension/CHF/CAD Annual BMP Blood Test 11/02/2025 11/02/2024, 03/04/2024 Cholesterol Screening (Lipid Panel) 11/02/2029 11/02/2024, 11/02/2024, 05/25/2024, Additional history exists HIB Vaccines Aged Out No longer eligi [...] 20 months Aged Out No longer eligible based on patient's age to complete this topic Varicella Vaccines Aged Out No longer eligible based on patient's age to complete this topic Procedures Procedure Name Priority Date/Time Associated Diagnosis Comments PROTHROMBIN TIME WITH INR Routine 11/16/2024 TRANSTHORACIC ECHOCARDIOGRAM (TTE) COMPLETE W/ CONTRAST Routine 11/04/2024 8:40 AM EDT SOB (shortness of breath) on exertion LDL CHOLESTEROL, DIRECT Routine 11/02/2024 4:29 PM EDT Pure hypercholesterolemia PROTHROMBIN TIME WITH INR Routine 11/02/2024 4:29 PM EDT Encounter for therapeutic drug monitoring LIPID PANEL WITH REFLEX TO DIRECT LDL Routine 11/02/2024 4:29 PM EDT Pure hypercholesterolemia COMPREHENSIVE METABOLIC PANEL Routine 11/02/2024 4:29 PM EDT Encounter for long-term (current) use of medications VITAMIN D 25 HYDROXY Routine 11/02/2024 4:29 PM EDT Vitamin D deficiency POC PROTIME INR BLOOD Routine 10/24/2024 Heterozygous factor V Leiden mutation (CMS/HCC V24) prison (current) use of anticoagulants Personal history of DVT (deep vein thrombosis) POC PROTIME INR BLOOD Routine 10/18/2024 Heterozygous factor V Leiden mutation (CMS/HCC V24) prison (current) use of anticoagulants Personal history of DVT (deep vein thrombosis) POC PROTIME INR BLOOD Routine 10/13/2024 Heterozygous factor V Leiden mutation (CMS/HCC V24) extermination supervisor (current) use of anticoagulants Personal history of DVT (deep vein thrombosis) POC PROTIME INR BLOOD Routine 10/06/2024 Heterozygous factor V Leiden mutation (CMS/HCC V24) extermination supervisor (current) use of anticoagulants Personal history of DVT (deep vein thrombosis) VAS US DUPLEX LOWER EXT ARTERIES BILAT WITH TATY Routine 10/04/2024 4:06 PM EDT History of revascularization procedure of lower extremity PAD (peripheral artery disease) (CMS/HCC V24) POC PROTIME INR BLOOD Routine 09/29/2024 Heterozygous factor V Leiden mutation (CMS/HCC V24) extermination supervisor (current) use of anticoagulants Personal history of DVT (deep vein thrombosis) POC PROTIME INR BLOOD Routine 09/21/2024 Heterozygous factor V Leiden mutation (CMS/HCC V24) extermination supervisor (current) use of anticoagulants Personal history of DVT (deep vein thrombosis) POC PROTIME INR BLOOD Routine 09/14/2024 Heterozygous factor V Leiden mutation (CMS/HCC V24) extermination supervisor (current) use of anticoagulants Personal history of DVT (deep vein thrombosis) POC PROTIME INR BLOOD Routine 09/07/2024 Heterozygous factor V Leiden mutation (CMS/HCC V24) extermination supervisor (current) use of anticoagulants Personal history of DVT (deep vein thrombosis) POC PROTIME INR BLOOD Routine 08/30/2024 Heterozygous factor V Leiden mutation (CMS/HCC V24) prison (current) use of anticoagulants Personal history of DVT (deep vein thrombosis) from Last 3 Months Results * Prothrombin time with INR (11/16/2024) Only the most recent of2 resultswithin the time period is included. INR 4.0 Comment:[facility] ER Prothrombin Time POC Blood Venous blood specimen / Unknown 11/16/2024 us Roni Christianson MD LAB BLOOD ORDERABLES Final Resu lt * (ABNORMAL) TRANSTHORACIC ECHOCARDIOGRAM (TTE) COMPLETE W/ CONTRAST (11/04/2024 8:40 AM EDT) Left Atrium Minor [place] 5.5 cm CV PACS Left Atrium Major [place] 4.9 cm CV PACS LA Area Sys (A2C) 13 cm2 CV PACS LA Area Sys (A4C) 18 cm2 CV PACS LA Volume (BP) 39 mL CV PACS RA Area 14.0 cm2 CV PACS RA 2D Volume 34 mL CV PACS Aortic Sinus Valsalva 3.9 cm CV PACS Ascending Aorta 3.3 cm CV PACS IVC Proximal 1.7 cm CV PACS IVC Proximal 1.2 cm CV PACS IVSD 0.8 0.6 - 1.0 cm CV PACS LVIDD 5.3 4.2 - 5.8 cm CV PACS LVIDS 4.0 2.5 - 4.0 cm CV PACS LVOT Diameter 2.4 cm CV PACS LVOT Mean [place] 0.6 m/s CV PACS LVOT Mean Grad 2 mmHg CV PACS LVOT Peak VTI 18.1 cm CV PACS LVOT Peak [place] 0.9 m/s CV PACS LVOT Peak Gradient 3 mmHg CV PACS LVPWD 0.9 0.6 - 1.0 cm CV PACS MV E' Tissue Velocity Lateral 6 cm/s CV PACS MV E' Tissue Velocity Septal 7 cm/s CV PACS LVOT Area 4.5 cm2 CV PACS LVOT Stroke Volume 82 mL CV PACS E Wave Deceleration Time 278(A) 119 - 242 ms CV PACS MV Peak A [place] 0.84 m/s CV PACS MV Peak E [place] 0.55 m/s CV PACS PV Acceleration Time 148 ms CV PACS RV Diastolic Basal Dimension 2.5 2.5 - 4.1 cm CV PACS RV S' 13 cm/s CV PACS TAPSE 22 mm CV PACS E/E' Ratio Septal 8 CV PACS E/E' Ratio Averaged 9 CV PACS Relative Wall Thickness ratio 0.34 CV PACS FS 25 % CV PACS LV Mass 2D 162 g CV PACS LVOT flow 271 mL/s CV PACS E/A Ratio 0.7 CV PACS E/E' Ratio Lateral 9 CV PACS BSA 2.32 m2 CV PACS LA Volume Index (BP) 17 mL/m2 CV PACS LVIDD Index 2.36 cm/m2 CV PACS LVIDS Index 1.78 cm/m2 CV PACS LV Mass Index 2D 72 50 - 102 g/m2 CV PACS LVOT Stroke Index 36 mL/m2 CV PACS RA 2D Volume Index 15(A) 18 - 32 mL/m2 CV PACS Ascending Aorta Index 1.47 cm/m2 CV PACS Anatomical Region Laterality Modality Ultrasound Narrative 11/04/2024 3:53 PM EDT ?This is a technically extremely difficult study. ?Left ventricle cavity size is normal. Wall thickness is normal. Systolic function is normal with an ejection fraction of 60-65%. There are no regional LV wall motion abnormalities. There is Grade I (mild) diastolic dysfunction. ?Right ventricle was not well visualized. Right ventricle cavity appears normal. Systolic function is normal. ?Valve findings see below. ?No prior study for comparison. Left Ventricle Left ventricle cavity size is normal. Wall thickness is normal. Systolic function is normal with an ejection fraction of 60-65%. There are no regional LV wall motion abnormalities. There is Grade I (mild) diastolic dysfunction. Right Ventricle Right ventricle was not well visualized. Right ventricle cavity appears normal. Systolic function is normal. Left Atrium Left atrium was not well visualized. Left atrium cavity size is normal. Right Atrium Right atrium cavity is normal. IVC/SVC Inferior vena cava structure is normal. RA pressures is estimated to be 8 mmHg (IVC diameter <21 mm and decreases <50% during inspiration). Mitral Valve The mitral valve was not well visualized. The leaflets exhibit normal excursion. There is no significant mitral valve regurgitation. There is no significant stenosis noted. Tricuspid Valve The tricuspid valve was not well visualized. Tricuspid regurgitation is inadequate for estimation of right ventricular systolic pressure. There is no significant tricuspid valve stenosis. Aortic Valve The aortic valve was not well visualized. There is no regurgitation or stenosis. Pulmonic Valve The pulmonic valve was not well visualized. Ascending Aorta The Sinus of Valsalva is (3.9 cm). Pericardium Pericardium was not well visualized. There is no pericardial effusion. Study Details Overall the study quality was technically difficult. Definity contrast was given to enhance imaging. Study was difficult due to: poor endocardial visualization and patient body habitus. us Demond Ayala MD CV ECHO PROCEDURES Final Result * (ABNORMAL) Lipid panel with reflex to direct LDL (11/02/2024 4:29 PM EDT) Cholesterol 289(H) 0 - 200 mg/dL LAB CHEMISTRY METHOD 11/02/2024 11:10 PM EDT [facility] Triglycerides 784(H) 0 - 150 mg/dL LAB CHEMISTRY METHOD 11/02/2024 11:10 PM T [facility] HDL 37(L) >=40 mg/dL LAB CHEMISTRY METHOD 11/02/2024 11:10 PM EDT [facility] LDL Calculated LAB CHEMISTRY METHOD 11/02/2024 11:10 PM EDT [facility] Comment: Unable to calculate when triglycerides >400 mg/dL. Triglyceride value is >= 500. ??Calculated LDL is not meaningful. ??Direct LDL has been added. VLDL Cholesterol Romel LAB CHEMISTRY METHOD 11/02/2024 11:10 PM EDT [facility] Comment:Unable to calculate when triglycerides >400 mg/dL. Non HDL Chol. (LDL+VLDL) LAB CHEMISTRY METHOD 11/02/2024 11:10 PM EDT [facility] Comment:Unable to calculate when triglycerides >400 mg/dL. Chol/HDL Ratio 7.8(H) 0.0 - 4.4 LAB CHEMISTRY METHOD 11/02/2024 11:10 PM EDT [facility] Blood Venous blood specimen / Unknown Venipuncture / Unknown 11/02/2024 4:29 PM EDT 11/02/2024 4:29 PM EDT us Roni Christianson MD LAB BLOOD ORDERABLES Final Resu lt Performing Organization Address City/[facility]/ZIP Co de Phone Number [facility] [address] [place] [address], [place] [phone] * (ABNORMAL) Vitamin D 25 hydroxy (11/02/2024 4:29 PM EDT) Vit D, 25-Hydroxy 13.7(L) 30.0 - 80.0 ng/mL LAB CHEMISTRY METHOD 11/02/2024 11:18 PM EDT [facility] Blood Venous blood specimen / Unknown Venipuncture / Unknown 11/02/2024 4:29 PM EDT 11/02/2024 4:29 PM EDT us Roni Christianson MD LAB BLOOD ORDERABLES Final Resu lt Performing Organization Address City/[facility]/ZIP Co de Phone Number [facility] [address] [place] [address], [place] [phone] * (ABNORMAL) LDL cholesterol, direct (11/02/2024 4:29 PM EDT) LDL Direct 164(H) <=100 mg/dL LAB CHEMISTRY METHOD 11/02/2024 11:23 PM EDT [facility] Blood Venous blood specimen / Unknown Venipuncture / Unknown 11/02/2024 4:29 PM EDT 11/02/2024 4:29 PM EDT us Roni Christianson MD LAB BLOOD ORDERABLES Final Resu lt [facility] [address] [place] [address], [place] [phone] * (ABNORMAL) Comprehensive metabolic panel (11/02/2024 4:29 PM EDT) Sodium 138 133 - 145 mmol/L LAB CHEMISTRY METHOD 11/02/2024 11:09 PM EDT [facility] Potassium 4.0 3.5 - 5.5 mmol/L LAB CHEMISTRY METHOD 11/02/2024 11:09 PM [facility] Chloride 102 96 - 110 mmol/L LAB CHEMISTRY METHOD 11/02/2024 11:09 PM [facility] CO2 25 21 - 32 mmol/L LAB CHEMISTRY METHOD 11/02/2024 11:09 PM [facility] Anion Gap 11 3 - 11 LAB CHEMISTRY METHOD 11/02/2024 11:09 PM [facility] Glucose 151(H) 70 - 100 mg/dL LAB CHEMISTRY METHOD 11/02/2024 11:09 PM [facility] BUN 16 5 - 25 mg/dL LAB CHEMISTRY METHOD 11/02/2024 11:09 PM [facility] Creatinine 0.96 0.70 - 1.30 mg/dL LAB CHEMISTRY METHOD 11/02/2024 11:09 PM [facility] eGFR 94 >=60 mL/min/1. 73m2 LAB CHEMISTRY METHOD 11/02/2024 11:09 PM [facility] Comment:Calculation based on the??Chronic Kidney Disease Epidemiology Collaboration (CKD-EPI) equation refit??without adjustment for race. BUN/Creatinine Ratio 16.7 LAB CHEMISTRY METHOD 11/02/2024 11:09 PM [facility] Calcium 9.2 8.5 - 10.5 mg/dL LAB CHEMISTRY METHOD 11/02/2024 11:09 PM [facility] AST (SGOT) 38 10 - 42 unit/L LAB CHEMISTRY METHOD 11/02/2024 11:09 PM [facility] ALT (SGPT) 55 10 - 60 unit/L LAB CHEMISTRY METHOD 11/02/2024 11:09 PM [facility] Alkaline Phosphatase 154(H) 42 - 121 unit/L LAB CHEMISTRY METHOD 11/02/2024 11:09 PM [facility] Total Protein 7.5 6.0 - 8.0 g/dL LAB CHEMISTRY METHOD 11/02/2024 11:09 PM [facility] Albumin 3.8 3.2 - 5.0 g/dL LAB CHEMISTRY METHOD 11/02/2024 11:09 PM [facility] Total Bilirubin 0.7 0.0 - 1.4 mg/dL LAB CHEMISTRY METHOD 11/02/2024 11:09 PM [facility] Blood Venous blood specimen / Unknown Venipuncture / Unknown 11/02/2024 4:29 PM EDT 11/02/2024 4:29 PM EDT us Roni Christianson MD LAB BLOOD ORDERABLES Final Resu lt [facility] [address] [place] [address], * POC Protime INR Blood (10/24/2024) Only the most recent of9 resultswithin the time period is included. Lot [...] PSV 14 cm/s CV VAS LAB Left HAND SPRING REPAIRER HELPER prox sys PSV 102 cm/s CV VAS [...] PSV 54 cm/s CV VAS LAB Right HAND SPRING REPAIRER HELPER prox sys PSV 85 cm/s CV VAS [...] following arterial segments: Distal AZIZA and distal SENIOR COURTROOM CLERK Left le. ??Moderately to severely abnormal ankle-brachial index at 0.60. 2. ??The patient has a history of a left femoral-popliteal bypass graft surgery which occurred more than 10 years ago at [facility]. ?? 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 ??The bypass graft was not visualized on the current study. 3. ??There is evidence of severe stenosis (50-99%) in the following arterial segments: Distal SFA, left peroneal artery, and left SENIOR COURTROOM CLERK 4. ??The right popliteal artery is occluded. [...] The mid peroneal artery has monophasic flow. Legal Aide Details A camara scale, color and doppler analysis ultrasound was performed. During the study longitudinal and transverse views were obtained. Continuous wave doppler and pulsed wave doppler was performed. Overall the study quality was poorly visualized. Study was technically difficult due to: body habitus. us Demond Ayala MD CV VASCULAR PROCEDURES Final Re sult from Last 3 Months Insurance [facility] Care Teams Fourdrinier Machine Tender Relationship Specialty Start Date End Date Roni Christianson MD [address] [place] [phone] PCP - General Internal Medicine 05/24/24
--- OUTSIDE RECORDS SUMMARY | 2024-11-21 12:56 | XMS_ITS | Encounter Summary ---
Author Organization [facility] Address [address] [place] [address] Care Team Providers Care Qualitative Field Coordinator Name Role Phone Roni Christianson MD Primary Care Provider [phone] Encounter Details Date Type Department Care Team (Latest Contact Info) Description 11/17/2024 Anticoagulation - Warfarin Visit [facility] [address] [phone] Jo Puentes LPN Heterozygous factor V Leiden mutation (CMS/HCC V24) (Primary Dx); [facility] (current) use of anticoagulants; Personal history of [...] EDT Anticoagulation - Warfarin Visit [facility] [address] [phone] 12/01/2024 11:00 AM EDT Office Visit Vascular Surgery - [place] [address] [place] [address] Demond Ayala MD [address] [place] [address] 01/10/2025 1:00 PM EDT Consult Orthopedic Surgery - [place] 250 175 [facility] [address] [place] [address] Keyur Peña, DPM 175 [facility] [address] [place] [address] 05/09/2025 11:30 AM EDT Office Visit Adult Medicine [facility] [address] [place] [address] Roni Christianson MD [address] [place] [phone] documented as of this encounter Procedures Procedure Name Priority Date/Time Associated Diagnosis Comments PROTHROMBIN TIME WITH INR Routine 11/16/2024 documented in this encounter Results * Prothrombin time with INR (11/16/2024) INR 4.0 Comment:[facility] ER Prothrombin Time POC Blood Venous blood specimen / Unknown 11/16/2024 us Roni Christianson MD LAB BLOOD ORDERABLES Final Resu lt documented in this encounter Visit Diagnoses Diagnosis Heterozygous factor V Leiden mutation ([facility] V24)- Primary Primary hypercoagulable state [facility] (current) use of anticoagulants Long-term (current) use of anticoagulants Personal history of DVT (deep vein thrombosis) Personal history of venous thrombosis and embolism documented in this encounter Care Teams Qualitative Field Coordinator Relationship Specialty Start Date End Date Roni Christianson MD [address] [place] [phone] PCP - General Internal Medicine 05/24/24 documented as of this encounter
--- OUTSIDE RECORDS SUMMARY | 2024-11-21 12:56 | XMS_ITS | Clinical Summary ---
Author Organization [facility] Address [address] [place] [address] Care Team Providers Care Utility Arborist Name Role Phone Roni Christianson MD Primary Care Provider [phone] Medications No known medications Active Problems No [...] age to complete this topic Care Teams Utility Arborist Relationship Specialty Start Date End Date Roni Christianson MD PCP - General Internal Medicine 04/17/22
== END 2024-11-21 11:10 | disposition home or self-care (01) ==
LOC: HO.LAB 11:09
PROVIDERS: PCP Internal Medicine; Visit Provider Psychiatry & Neurology Neurology
DX: F01.50 Vascular dementia, unspecified severity, without behavioral disturbance, psychotic disturbance, mood disturbance, and anxiety (principal)
CPT/HCPCS: 36415; 82565; 82607; 84520

== ENCOUNTER 2025-01-05 14:02 | Outpatient (REF) | payer OTHER, SELFPAY ==
--- NOTE | ~2025-01-05 | CT_ITS ---
EXAMINATION: CTA NECK WITH CONTRAST (STROKE) CTA BRAIN WITH CONTRAST (STROKE) CLINICAL INFORMATION: Vascular dementia. COMPARISON: No priors. Correlated to MRI brain dated October 24, 2024. TECHNIQUE: CTA of the head and neck was performed in the axial plane from the mediastinum to the skull vertex using 70 mL Omnipaque 350 intravenous contrast. Additional reformatted multiplanar images including maximum intensity projection MIP images are generated on the CT workstation. This CT examination was performed using dose optimization techniques as appropriate, variously including the following: *Automated exposure control *Adjustment of mA and/or kV according to patient size (this includes techniques or standardized protocols for targeted exams where dose is matched to indication/reason for exam; i.e. extremities or head) *Use of iterative reconstruction technique. DLP: 1698 mGy centimeter. FINDINGS: The degree of stenosis determined by criteria similar to NASCET. Brain: No acute intracranial hemorrhage, mass effect, midline shift, hydrocephalus or herniation. Sommer-white matter differentiation is normal. Bilateral multifocal patchy deep periventricular white matter hypodensities involving centrum semiovale and alejandre radiata. 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 Prominence of the extra-axial CSF spaces cerebral sulci and ventricles. Paranasal sinuses are well aerated without air-fluid levels. Tympanic cavities and mastoid cells are aerated. Punctate calcification superficial right parotid gland. Chest CTA: No aneurysm or dissection or focal stenosis, thoracic aortic arch. Neck CTA: Right CCA: Normal patency. No focal stenosis. No intimal flap. Right ICA: Normal patency. Small calcified plaque. No focal stenosis. No intimal flap. Left CCA: Normal patency. No focal stenosis. No intimal flap. Left ICA: Normal patency. Small calcified plaque. No focal stenosis. No intimal flap. V1/V2 segments: Normal patency. No focal stenosis. No intimal flap. Left vertebral artery is dominant. Both are orientating from the subclavian arteries. Brain CTA: Anterior cerebral circulation: ICAs: Normal patency. No focal stenosis. No abrupt cut off. MCA's: Normal patency. No focal stenosis. No abrupt cut off. Bifurcation/trifurcation demonstrated no gross vascular irregularity. ACAs: Normal patency. No focal stenosis. No abrupt cut off. Anterior communicant artery is patent. Ophthalmic arteries are patent. The posterior communicating arteries are patent. There is a robust right posterior communicating artery. Posterior cerebral circulation: Right V3/V4 normal patency. No focal stenosis. Left vertebral artery is dominant. Posterior inferior cerebral arteries and anterior inferior cerebral arteries are patent. Superior cerebellar arteries are patent. Basilar artery is patent without focal stenosis or intimal flap. plastic welder: Right P1 segment is hypoplastic. No focal stenosis or abrupt cut off. Ancillary findings: Sagittal pulmonary mosaic pattern. Multilevel cervical spondylosis C4-5 C5-6 and C6-7 levels. The thyroid gland is not enlarged. Prominent lingual tonsils and secretions in the vallecula. Main cerebral venous sinuses are patent without intraluminal defects. There is a dominant right transverse and sigmoid sinus. CT/CT angio neck IMPRESSION: Small calcified plaque both carotid bulbs and proximal ICAs. No high degree stenosis or dissection. No main cerebral artery occlusion or embolus. Left vertebral artery is dominant. This critical test result is communicated to: Electronically signed by: Sunday Howard MD 01/05/2025 03:59 PM EDT
--- NOTE | ~2025-01-05 | CT_ITS ---
EXAMINATION: CTA NECK WITH CONTRAST (STROKE) CTA BRAIN WITH CONTRAST (STROKE) CLINICAL INFORMATION: Vascular dementia. COMPARISON: No priors. Correlated to MRI brain dated October 24, 2024. TECHNIQUE: CTA of the head and neck was performed in the axial plane from the mediastinum to the skull vertex using 70 mL Omnipaque 350 intravenous contrast. Additional reformatted multiplanar images including maximum intensity projection MIP images are generated on the CT workstation. This CT examination was performed using dose optimization techniques as appropriate, variously including the following: *Automated exposure control *Adjustment of mA and/or kV according to patient size (this includes techniques or standardized protocols for targeted exams where dose is matched to indication/reason for exam; i.e. extremities or head) *Use of iterative reconstruction technique. DLP: 1698 mGy centimeter. FINDINGS: The degree of stenosis determined by criteria similar to NASCET. Brain: No acute intracranial hemorrhage, mass effect, midline shift, hydrocephalus or herniation. Sommer-white matter differentiation is normal. Bilateral multifocal patchy deep periventricular white matter hypodensities involving centrum semiovale and alejandre radiata. 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 Prominence of the extra-axial CSF spaces cerebral sulci and ventricles. Paranasal sinuses are well aerated without air-fluid levels. Tympanic cavities and mastoid cells are aerated. Punctate calcification superficial right parotid gland. Chest CTA: No aneurysm or dissection or focal stenosis, thoracic aortic arch. Neck CTA: Right CCA: Normal patency. No focal stenosis. No intimal flap. Right ICA: Normal patency. Small calcified plaque. No focal stenosis. No intimal flap. Left CCA: Normal patency. No focal stenosis. No intimal flap. Left ICA: Normal patency. Small calcified plaque. No focal stenosis. No intimal flap. V1/V2 segments: Normal patency. No focal stenosis. No intimal flap. Left vertebral artery is dominant. Both are orientating from the subclavian arteries. Brain CTA: Anterior cerebral circulation: ICAs: Normal patency. No focal stenosis. No abrupt cut off. MCA's: Normal patency. No focal stenosis. No abrupt cut off. Bifurcation/trifurcation demonstrated no gross vascular irregularity. ACAs: Normal patency. No focal stenosis. No abrupt cut off. Anterior communicant artery is patent. Ophthalmic arteries are patent. The posterior communicating arteries are patent. There is a robust right posterior communicating artery. Posterior cerebral circulation: Right V3/V4 normal patency. No focal stenosis. Left vertebral artery is dominant. Posterior inferior cerebral arteries and anterior inferior cerebral arteries are patent. Superior cerebellar arteries are patent. Basilar artery is patent without focal stenosis or intimal flap. server administrator: Right P1 segment is hypoplastic. No focal stenosis or abrupt cut off. Ancillary findings: Sagittal pulmonary mosaic pattern. Multilevel cervical spondylosis C4-5 C5-6 and C6-7 levels. The thyroid gland is not enlarged. Prominent lingual tonsils and secretions in the vallecula. Main cerebral venous sinuses are patent without intraluminal defects. There is a dominant right transverse and sigmoid sinus. CT/CT angio head IMPRESSION: Small calcified plaque both carotid bulbs and proximal ICAs. No high degree stenosis or dissection. No main cerebral artery occlusion or embolus. Left vertebral artery is dominant. This critical test result is communicated to: Electronically signed by: Sunday Howard MD 01/05/2025 03:59 PM EDT
[2025-01-05] MEDS: iohexoL 350 MG/ML 100 ML INFUS..BTL IV (15:19)
--- OUTSIDE RECORDS SUMMARY | 2025-01-05 15:21 | XMS_ITS | Clinical Summary ---
Author Organization [facility] Address [address] [place] [address] Care Team Providers Care Personal Lines Advisor Name Role Phone Roni Christianson MD Primary Care Provider [phone] Medications No known medications Active Problems No [...] 77 04/30/2022 4:12 PM EDT Temperature 36.2 C (97.2 F) 04/30/2022 4:12 PM EDT Respiratory Rate - - Oxygen Saturation 98% [...] Vaccine (1 of 2) 2020 Influenza Vaccine (Season Ended) 2025 05/04/20 18 Pneumococcal Vaccine Aged Out No long er eligible based on patient's age to complete this topic RSV Ped < 20 months Aged Out No longe r eligible based on patient's age to complete this topic Care Teams Personal Lines Advisor Relationship Specialty Start Date End Date Roni Christianson MD PCP - General Internal Medicine 04/17/22
[2025-01-09 11:26] LABS: Creatinine POC 1.2 mg/dL (0.5-1.4); GFR POC > 60
== END 2025-01-05 14:03 | disposition home or self-care (01) ==
LOC: HO.CT 14:02
PROVIDERS: PCP Internal Medicine; Visit Provider Psychiatry & Neurology Neurology
DX: F01.50 Vascular dementia, unspecified severity, without behavioral disturbance, psychotic disturbance, mood disturbance, and anxiety (principal); I63.50 Cerebral infarction due to unspecified occlusion or stenosis of unspecified cerebral artery
CPT/HCPCS: 70496; 70498; 82565; Q9967

== ENCOUNTER → 2025-01-05 14:41 | Outpatient (BNV) | payer OTHER, SELFPAY | PROVIDERS: PCP Internal Medicine; Visit Provider Radiology Diagnostic Radiology | DX: I65.23 Occlusion and stenosis of bilateral carotid arteries (principal) | CPT/HCPCS: 70496; 70498 ==